=== PATIENT | female | born 1975 | race Caucasian/White ===

== ENCOUNTER 2019-10-05 12:45 | Emergency (ER) | payer OTHER ==
[~2019-10-05] VITALS: Ht 162.6 cm; Wt 65.8 kg
[~2019-10-05 12:45] MED LIST: BENTYL10 MG/ML; CARAFATE SU1 G/10 ML; FLOMAX; INTESTINEX1 CAP; LIBRAX CAPSULE1 CA1; NABUMETONE500 MG PO; PERCOCET 5/3251 TAB PO; PHENERGAN VC W120 ML; PROTONIX40 MG; SYNTHROID125 MCG; SYNTHROID50 MCG; SYNTHROID50 MCG PO
[2019-10-05] MEDS ORDERED: SYMBICORT 16010.2 GM (12:55)
[2019-10-05] MEDS ORDERED: BENZONATATE200 M1 (12:56)
== END 2019-10-05 18:29 | disposition home or self-care (01) ==
LOC: ER 12:45 → CPU-OBS 13:47 → ER 18:29
DX: R07.89 Other chest pain (principal); R00.2 Palpitations; T48.6X5A Adverse effect of antiasthmatics, initial encounter; Y92.89 Other specified places as the place of occurrence of the external cause
CPT/HCPCS: G0378; G0379; 93005

== ENCOUNTER 2025-07-01 10:15 | Inpatient (IN) | payer OTHER ==
[~2025-07-01] VITALS: Ht 162.6 cm; Wt 69.9 kg
[~2025-07-01 10:15] MED LIST changes: +ADVAIR HFA 230/12 GM; +BENZONATATE200 M1; +DELZICOL400 M1 PO; +SINGULAIR10 MG PO; +SYMBICORT 16010.2 GM
[2025-07-01] MEDS ORDERED: LIALDA1.2 GM PO (11:49)
[2025-07-01] MEDS ORDERED: TREXIMET 85-501 EACH PO (11:49)
[2025-07-01 11:51] VITALS: BP 108/70
[2025-07-01] MEDS ORDERED: LEVSIN/SL0.125 MG SL (11:51)
[2025-07-13] MEDS ORDERED: CHLORHEXIDINE GLUCONATE 120 ML BOTTLE TOP ONE (06:50)
[2025-07-13] MEDS ORDERED: BUPIVACAINE HCL/Mpf 0.5% 10ML VIAL ONE (06:50)
[2025-07-13] MEDS ORDERED: LIDOCAINE HCL 1%/EPINEPHRINE 20ML VIAL IJ ONE (06:50)
[2025-07-13] MEDS ORDERED: CEFTRIAXONE SODIUM 2,000 MG VIAL ONE (06:51)
[2025-07-13] MEDS ORDERED: METRONIDAZOLE/SODIUM CHLORIDE 500 MG/100 ML PIGGYBACK IV ONE (06:51)
[2025-07-13] MEDS ORDERED: SUGAMMADEX SODIUM 200 MG/2 ML VIAL IV ONE (07:01)
[2025-07-13] MEDS ORDERED: ONDANSETRON HCL 2 MG/ML VIAL ONE ×2 (12:07→13:48)
[2025-07-13] MEDS ORDERED: DEXTROSE 50 % IN WATER 0.5 G/ML DISP.SYRIN IV PRN (13:15)
[2025-07-13] MEDS ORDERED: RINGERS SOLUTION,LACTATED 1,000 ML IV SCH (13:15)
[2025-07-13] MEDS ORDERED: OxyCODONE HCL 5 MG TABLET (ROXICODONE) PO PRN (13:15)
[2025-07-13] MEDS ORDERED: MORPHINE SULFATE 4 MG/ML VIAL IV PRN (13:15)
[2025-07-13] MEDS ORDERED: ONDANSETRON HCL 2 MG/ML VIAL IV PRN (13:15)
[2025-07-13 13:47] LABS: BASO % 0.1 % (0.1-1.2); EOS # 0.00 (0.04-0.54); EOS % 0.0 % (0.7-7.0); LYMPH # 0.45 (1.18-3.74); LYMPH % 4.9 % (19.3-53.1); MEAN PLATELET VOLUME 10.70 fl (9.4-12.4); MONO # 0.29 (0.24-0.82); MONO % 3.2 % (4.7-12.5); NEUT # 8.41 (1.56-6.13); NEUT % 91.5 % (34.0-71.1); RED CELL DISTRIBUTION WIDTH 12.6 % (11.6-14.4)
[2025-07-13] MEDS ORDERED: ACETAMINOPHEN 500 MG GEL..CAP PO SCH (14:00)
[2025-07-13] MEDS ORDERED: HYOSCYAMINE SULFATE 0.125 MG TAB.SUBL ONE (15:58)
[2025-07-13] MEDS ORDERED: GABAPENTIN 300 MG CAPSULE PO ONE (15:58)
[2025-07-13] MEDS ORDERED: METOCLOPRAMIDE HCL 5 MG/ML VIAL ONE (15:58)
[2025-07-13] MEDS ORDERED: SIMETHICONE 125 MG CAPSULE PO ONE (15:58)
[2025-07-13] MEDS ORDERED: HYOSCYAMINE SULFATE 0.125 MG TAB.SUBL SL SCH (17:00)
[2025-07-13] MEDS ORDERED: SIMETHICONE 125 MG CAPSULE PO SCH (17:00)
[2025-07-13] MEDS ORDERED: GABAPENTIN 300 MG CAPSULE PO SCH (17:00)
[2025-07-13] MEDS ORDERED: METOCLOPRAMIDE HCL 5 MG/ML VIAL IV SCH (17:00)
[2025-07-13 19:17] VITALS: BP 112/72; O2SAT 99
[2025-07-13] MEDS ORDERED: FAMOTIDINE/PF 20 MG/2 ML VIAL IV PUSH SCH (21:00)
[2025-07-14 08:43] VITALS: BP 105/83; O2SAT 98
[2025-07-14 08:57] LABS: BASO % 0.3 % (0.1-1.2); EOS # 0.00 (0.04-0.54); EOS % 0.0 % (0.7-7.0); LYMPH # 0.79 (1.18-3.74); LYMPH % 11.8 % (19.3-53.1); MEAN PLATELET VOLUME 11.10 fl (9.4-12.4); MONO # 0.54 (0.24-0.82); MONO % 8.1 % (4.7-12.5); NEUT # 5.34 (1.56-6.13); NEUT % 79.7 % (34.0-71.1); RED CELL DISTRIBUTION WIDTH 12.6 % (11.6-14.4)
[2025-07-14] MEDS ORDERED: LACTOBACILLUS ACIDOPHILUS 1 CAP CAP PO SCH (09:00)
[2025-07-14 09:51] LABS: BUN CREA RATIO 16.0 (7.0-25.0); CREATININE SERUM 0.44 mg/dL (0.55-1.02); GFR 151.36; GLUCOSE FASTING 96.0 mg/dL (65-100); OSMOLALITY SERUM 279.0 MOSM/KG (275-295)
[2025-07-14 16:00] VITALS: BP 81/57; O2SAT 100
[2025-07-14 16:58] VITALS: BP 102/71
[2025-07-14] MEDS ORDERED: ENOXAPARIN SODIUM 40 MG/0.4 ML SYRINGE SUBCUTANEO SCH (17:00)
[2025-07-15 00:53] VITALS: BP 113/72; O2SAT 96
[2025-07-15 08:04] VITALS: BP 104/73; O2SAT 98
[2025-07-15] MEDS ORDERED: ENOXAPARIN SODIUM 40 MG/0.4 ML SYRINGE SUBCUTANEO SCH (09:00)
[2025-07-15] MEDS ORDERED: GABAPENTIN 300 MG CAPSULE PO PRN (13:58)
[2025-07-15 14:00] VITALS: BP 110/77; O2SAT 97
[2025-07-15] MEDS ORDERED: OxyCODONE HCL 5 MG TABLET (ROXICODONE) PO PRN (19:30)
[2025-07-16 00:14] VITALS: BP 99/62; O2SAT 98
[2025-07-16 08:00] VITALS: BP 107/74; O2SAT 97
[2025-07-16] MEDS ORDERED: LEVSIN/SL0.125 MG SL (08:03)
[2025-07-16] MEDS ORDERED: INTESTINEX680 M1 PO (08:03)
[2025-07-16] MEDS ORDERED: PERCOCET 5-3251 EACH PO (08:04)
== END 2025-07-16 12:33 | disposition home or self-care (01) | DRG 331 ==
LOC: SURG 07-13 07:00 → O/R 07-13 07:00 → SURH 07-13 10:15 → SURG 07-13 13:00
PROVIDERS: ADMIT Surgery; ATTEND Surgery
PROC: 0DBP4ZZ Excision of Rectum, Percutaneous Endoscopic Approach (ICD-10-PCS; 2025-07-13)
PROC: 0DNW4ZZ Release Peritoneum, Percutaneous Endoscopic Approach (ICD-10-PCS; 2025-07-13)
PROC: 0DNU4ZZ Release Omentum, Percutaneous Endoscopic Approach (ICD-10-PCS; 2025-07-13)
PROC: 0DJD8ZZ Inspection of Lower Intestinal Tract, Via Natural or Artificial Opening Endoscopic (ICD-10-PCS; 2025-07-13)
PROC: 8E0W4CZ Robotic Assisted Procedure of Trunk Region, Percutaneous Endoscopic Approach (ICD-10-PCS; 2025-07-13)
PROC: 0DTN4ZZ Resection of Sigmoid Colon, Percutaneous Endoscopic Approach (ICD-10-PCS; principal; 2025-07-13 12:15)
DX: K57.30 Diverticulosis of large intestine without perforation or abscess without bleeding (principal); K57.32 Diverticulitis of large intestine without perforation or abscess without bleeding; K52.9 Noninfective gastroenteritis and colitis, unspecified; K66.0 Peritoneal adhesions (postprocedural) (postinfection)
CPT/HCPCS: 44207; 44213; 45330; 44180; S2900